=== PATIENT | male | born 1985 | race African-American/Black ===

== ENCOUNTER 2017-01-11 02:56 | Emergency (ER) | payer MEDICAID ==
[~2017-01-11] VITALS: Ht 175.3 cm; Wt 72.6 kg
[~2017-01-11 02:56] MED LIST: ALBUTEROL SULFAT2 MG PO; LITHIUM8 MEQ/5 M1 PO; NKM; QUETIAPINE FUMA25 MG ORAL; ZYPREXA2.5 MG ORAL
[2017-01-11 04:37] LABS: BASOPHILS % (AUTO) 1.1 % (0.0-2.0); EOSINOPHILS % (AUTO) 0.5 % (0.0-3.0); LYMPHOCYTES % (AUTO) 12.5 % (20.0-45.0); MEAN CORPUSCULAR HEMOGLOBIN 30.8 PG (27.0-31.0); MEAN CORPUSCULAR HGB CONC 32.4 G/DL (32.0-36.0); MEAN CORPUSCULAR VOLUME 95 FL (80-99); MEAN PLATELET VOLUME 8.5 FL (6.5-10.1); MONOCYTES % (AUTO) 12.6 % (1.0-10.0); NEUTROPHILS % (AUTO) 73.4 % (45.0-75.0); PLATELET COUNT 209 K/UL (150-450); RED BLOOD COUNT 4.04 M/UL (4.70-6.10); RED CELL DISTRIBUTION WIDTH 13.5 % (11.6-14.8); WHITE BLOOD COUNT 7.2 K/UL (4.8-10.8)
[2017-01-11 04:46] LABS: ACETAMINOPHEN < 10 ug/mL (10-30); ALANINE AMINOTRANSFERASE 26 U/L (3-41); ALBUMIN/GLOBULIN RATIO 0.9 (1.0-2.7); ALCOHOL < 10 mg/dL; ANION GAP 11 (5-15); ASPARTATE AMINO TRANSFERASE 30 U/L (5-40); CALCIUM 9.4 mg/dL (8.6-10.2); CARBON DIOXIDE 28 mEQ/L (20-30); CHLORIDE 101 mEQ/L (98-107); CREATININE 0.8 mg/dL (0.7-1.2); GLOMERULAR FILTRATION RATE > 60 mL/min (>60); HEMOLYSIS 3; POTASSIUM 3.9 mEQ/L (3.4-4.9); SODIUM 140 mEQ/L (135-145); TOTAL PROTEIN 8.4 g/dL (6.6-8.7)
[2017-01-11 06:00] VITALS: BP 105/56
[2017-01-11 07:00] VITALS: BP 115/65
--- NOTE | 2017-01-11 08:58 | Diagnostic Imaging Report ---
Indication: PAIN Technique: 3 views of the right ankle Comparison: none Findings: There is a lucency over the medial talus on the AP view, not confirmed on any of the other views. No other evidence of acute fractures. No dislocations. There is slight soft tissue swelling adjacent to the distal fibula. Impression: Lucency of the only a single view, of doubtful significance but acute fracture not completely excludable. Correlate with clinical findings. Evidence of lateral soft tissue trauma Findings discussed by phone with Dr. Price in the emergency room at the time of interpretation
[2017-01-11 11:17] VITALS: BP 109/66
[2017-01-11 11:43] VITALS: BP 109/66
--- NOTE | 2017-01-11 11:50 | Emergency Room Report ---
History of Present Illness General Chief Complaint: Behavioral Complaint Present Illness Allergies: Coded Allergies: No Known Allergies (Unverified , 11/07/14) Nursing Documentation-PMH Hx Asthma: Yes Physical Exam Vital Signs Date Time Temp Pulse Resp B/P Pulse Ox O2 Delivery O2 Flow Rate FiO2 01/11/17 02:41 98.1 98 18 137/87 100 Room Air Medical Decision Making Diagnostic Impression: Primary Impression: Behavioral disorder Additional Impression: Right ankle injury Qualified Codes: S99.911A - Unspecified injury of right ankle, initial encounter ER Course 31-year-old male presents to ED for evaluation. Stating he is suicidal. Also complaining of right ankle pain and swelling Patient initially seen and evaluated. Please see initial note for full history and physical Patient had x-ray which showed questionable talus fracture. Placed in posterior splint Labs-no leukocytosis, hemoglobin/hematocrit stable, electrolytes okay, U. tox + amphetamines and cocaine CT of the ankle shows no evidence of fracture. posterior splint removed Patient was evaluated by Dr. Barkley (psychiatry) determined that patient has no immediate danger to self or others. Patient can be cleared and discharged. patient refuses Otilio wrap or crutches Diagnoses-behavioral disorder, ankle injury Stable and discharged to home. Followup with PMD/psychiatry. Return to ED if symptoms recur or worsen Labs Test 01/11/17 04:00 01/11/17 07:13 01/11/17 07:41 White Blood Count 7.2 K/UL (4.8-10.8) Red Blood Count 4.04 M/UL (4.70-6.10) Hemoglobin 12.4 G/DL (14.2-18.0) Hematocrit 38.3 % (42.0-52.0) Mean Corpuscular Volume 95 FL (80-99) Mean Corpuscular Hemoglobin 30.8 PG (27.0-31.0) Mean Corpuscular Hemoglobin Concent 32.4 G/DL (32.0-36.0) Red Cell Distribution Width 13.5 % (11.6-14.8) Platelet Count 209 K/UL (150-450) Mean Platelet Volume 8.5 FL (6.5-10.1) Neutrophils (%) (Auto) 73.4 % (45.0-75.0) Lymphocytes (%) (Auto) 12.5 % (20.0-45.0) Monocytes (%) (Auto) 12.6 % (1.0-10.0) Eosinophils (%) (Auto) 0.5 % (0.0-3.0) Basophils (%) (Auto) 1.1 % (0.0-2.0) Sodium Level 140 mEQ/L (135-145) Potassium Level 3.9 mEQ/L (3.4-4.9) Chloride Level 101 mEQ/L (98-107) Carbon Dioxide Level 28 mEQ/L (20-30) Anion Gap 11 (5-15) Blood Urea Nitrogen 14 mg/dL (7-23) Creatinine 0.8 mg/dL (0.7-1.2) Estimat Glomerular Filtration Rate > 60 mL/min (>60) Glucose Level 98 mg/dL (74-106) Calcium Level 9.4 mg/dL (8.6-10.2) Total Bilirubin 0.3 mg/dL (0.0-1.2) Aspartate Amino Transf (AST/SGOT) 30 U/L (5-40) Alanine Aminotransferase (ALT/SGPT) 26 U/L (3-41) Alkaline Phosphatase 84 U/L (40-129) Total Protein 8.4 g/dL (6.6-8.7) Albumin 4.1 g/dL (3.5-5.2) Globulin 4.3 g/dL Albumin/Globulin Ratio 0.9 (1.0-2.7) Salicylates Level < 1 mg/dL (10-30) Acetaminophen Level < 10 ug/mL (10-30) Serum Alcohol < 10 mg/dL Urine Opiates Screen Negative (NEGATIVE) Urine Barbiturates Screen Negative (NEGATIVE) Phencyclidine (PCP) Screen Negative (NEGATIVE) Urine Amphetamines Screen Positive (NEGATIVE) Urine Benzodiazepines Screen Negative (NEGATIVE) Urine Cocaine Screen Positive (NEGATIVE) Urine Marijuana (THC) Screen Negative (NEGATIVE) Other X-Ray Diagnostic Results Other X-Ray Diagnostic Results : X-Ray Ordered: R ankle EP Interpretation: No Findings: no fractures, no dislocation, no soft tissue swelling, other - ? talus fx Number of Views: 3 CT/MRI/US Diagnostic Results CT/MRI/US Diagnostic Results : Imaging Test Ordered: CT Ankle Impression no fx identified Last Vital Signs Date Time Temp Pulse Resp B/P Pulse Ox O2 Delivery O2 Flow Rate FiO2 4/5/17 11:43 98.1 66 18 109/66 98 Room Air Status: improved Disposition: HOME, SELF-CARE Condition: Stable Referrals: NOT CHOSEN IPA/,REFERRING (PCP) Patient Instructions: Self-Destructive Behavior EDIE SCHMITZ M.D. Jan 11, 2017 11:50
--- NOTE | 2017-01-11 16:18 | Diagnostic Imaging Report ---
Indication: Right ankle pain and swelling Technique: No IV contrast, per, protocol. Spiral acquisitions obtained through the right ankle. Multiplanar reconstructions were generated. Total dose length product 396 mGycm. CTDIvol(s) 15 mGy. Radiation dose was minimized using automated exposure control Comparison: Plain radiograph of earlier the same day Findings: There is mild lateral soft tissue swelling. No acute fractures. No dislocations. The joint spaces are preserved. Impression: No acute bony trauma. Previously questioned (on plain radiograph) talar injury was presumably artifactual. Evidence of minimal lateral soft tissue injury. The CT scanner at [facility] is accredited by the [employer] and the scans are performed using protocols designed to limit radiation exposure to as low as reasonably achievable to attain images of sufficient resolution adequate for diagnostic evaluation.
--- NOTE | 2017-01-11 23:58 | Consultation ---
DATE OF CONSULTATION: 01/11/2017 PSYCHIATRIC CONSULTATION: CONSULTING PHYSICIAN: Charles Barkley M.D. ATTENDING PHYSICIAN: Kanu Price M.D. REFERRING PHYSICIAN: Kanu Price M.D. HISTORY OF PRESENT ILLNESS: This patient was seen in the ER, 31-year-old male with a history of substance abuse disorder, mainly cocaine, who is being coming to the hospital with chief complaint of suicidal ideation. Psychiatry was consulted as the patient repeatedly was saying that he is going to kill himself by jumping off a bridge or jumping off a highway. He again was saying that he was suicidal because he was kicked out of his apartment. During the evaluation, he was eating a sandwich. I asked him if he could stop eating his sandwich because his mouth was full and I was not able to understand what he was saying, and he refused. Upon evaluation, he did not endorse any psychotic, depressive, anxiety, or manic symptoms. He was very angry, , and grandiose. He demanded to be admitted to a psychiatric tabor as he was "suicidal". He then stated that if they decided to discharge him, he will go and kill himself. While he was finishing his sandwich, he also admitted that he has been using drugs, mainly cocaine. When I discussed with him to follow with a psychiatric taking medication, not using drugs, he became very angry, started hitting him against the bed rail and he stated that he used profanity and he told me that he used afterword and asked me to leave the room. PAST PSYCHIATRIC HISTORY: It appears that the patient has been coming to the hospital with a similar complaint using drugs and claiming that he is suicidal. It appears that he knows the procedure. He told me that he was hospitalized in a psychiatric tabor recently, but he would not elaborate. He did not have any suicide attempts in the past. He has been noncompliant with his medication and was not able to tell me where is the psychiatrist that he had seen. PAST MEDICAL HISTORY: He has knee swelling. MEDICATIONS: Currently, he is not taking any medications. ALLERGIES: No known drug allergies. SUBSTANCE ABUSE HISTORY: Significant for cocaine. His toxicology is positive for amphetamines as well as cocaine. During the evaluation, he denies using any cocaine and denies any crystal meth. MENTAL STATUS EXAMINATION: Alert and oriented x4. Mood was angry. Affect was full range. Congruent mood and appropriate. Thought process is concrete. Thought content, no suicidal or homicidal ideations, although he says that he is suicidal and I do not believe that he is suicidal. He is saying that he is suicidal for secondary gain. No delusions. Cognition is intact. Insight and judgment are fair. ASSESSMENT: AXIS I Substance use disorder. AXIS II Deferred. AXIS III Knee swelling. AXIS IV [id number]. AXIS V Global assessment of functioning is 50. PLAN: The patient will be discharged with the followup plan with a psychiatrist. He will be given a referral to substance use disorder program as well as following up with a psychiatrist. He is not meeting the criteria for [facility] or inpatient level of care. Charles Barkley M.D. DR: Maritza JOB#: [id number] CC:
--- NOTE | 2017-01-12 03:07 | Emergency Room Report ---
History of Present Illness General Chief Complaint: Behavioral Complaint Source: Patient Present Illness HPI Patient is a 31-year-old male brought in by ambulance for increased lower extremity pain. The patient stated that he had increased pain to his foot. Patient reported having recent injury. He reported having increased pain. The patient reports recently been discharged from the psychiatric facility. He stated had been taking lithium as well as Depakote. Patient denied other complaints. Allergies: Coded Allergies: No Known Allergies (Unverified , 11/07/14) Patient History Past Medical History: see triage record Reviewed Nursing Documentation: PMH: Agreed, PSxH: Agreed Nursing Documentation-PMH Hx Asthma: Yes Review of Systems All Other Systems: negative except mentioned in HPI Physical Exam Vital Signs Date Time Temp Pulse Resp B/P Pulse Ox O2 Delivery O2 Flow Rate FiO2 01/11/17 02:41 98.1 98 18 137/87 100 Room Air Sp02 EP Interpretation: reviewed, normal General Appearance: normal inspection, well appearing, no apparent distress, alert, GCS 15 Head: atraumatic ENT: normal ENT inspection, hearing grossly normal, normal voice Neck: normal inspection, full range of motion, supple, no bony tend Respiratory: normal inspection, lungs clear, normal breath sounds, no respiratory distress, no retraction, no wheezing Cardiovascular #1: regular rate, rhythm, no edema Gastrointestinal: normal inspection, normal bowel sounds, non tender, soft, no guarding, no hernia Genitourinary: no CVA tenderness Musculoskeletal: decreased range of motion, swelling Neurologic: normal inspection, alert, oriented x3, responsive, visual and stock associate III-XII nml as tested, speech normal Psychiatric: mood/affect normal Skin: normal inspection, normal color, no rash Medical Decision Making Diagnostic Impression: Primary Impression: Behavioral disorder Additional Impressions: Right ankle injury Qualified Codes: S99.911A - Unspecified injury of right ankle, initial encounter Drug abuse ER Course Patient presented for right ankle pain. Differential diagnosis included but was not limited to fracture, contusion, vascular insufficiency, aortic aneurysm , cellulitis.Because of complexity of patient's case laboratory testing and imaging studies were ordered. The patient was noted to have partial fracture to the talus. The patient was placed in a posterior splint. The patient was noted to have some prior history of psychosis and was given Zyprexa for agitation. Patient was in the endorsed to pending psychiatric evaluation Labs Test 01/11/17 04:00 01/11/17 07:13 01/11/17 07:41 White Blood Count 7.2 K/UL (4.8-10.8) Red Blood Count 4.04 M/UL (4.70-6.10) Hemoglobin 12.4 G/DL (14.2-18.0) Hematocrit 38.3 % (42.0-52.0) Mean Corpuscular Volume 95 FL (80-99) Mean Corpuscular Hemoglobin 30.8 PG (27.0-31.0) Mean Corpuscular Hemoglobin Concent 32.4 G/DL (32.0-36.0) Red Cell Distribution Width 13.5 % (11.6-14.8) Platelet Count 209 K/UL (150-450) Mean Platelet Volume 8.5 FL (6.5-10.1) Neutrophils (%) (Auto) 73.4 % (45.0-75.0) Lymphocytes (%) (Auto) 12.5 % (20.0-45.0) Monocytes (%) (Auto) 12.6 % (1.0-10.0) Eosinophils (%) (Auto) 0.5 % (0.0-3.0) Basophils (%) (Auto) 1.1 % (0.0-2.0) Sodium Level 140 mEQ/L (135-145) Potassium Level 3.9 mEQ/L (3.4-4.9) Chloride Level 101 mEQ/L (98-107) Carbon Dioxide Level 28 mEQ/L (20-30) Anion Gap 11 (5-15) Blood Urea Nitrogen 14 mg/dL (7-23) Creatinine 0.8 mg/dL (0.7-1.2) Estimat Glomerular Filtration Rate > 60 mL/min (>60) Glucose Level 98 mg/dL (74-106) Calcium Level 9.4 mg/dL (8.6-10.2) Total Bilirubin 0.3 mg/dL (0.0-1.2) Aspartate Amino Transf (AST/SGOT) 30 U/L (5-40) Alanine Aminotransferase (ALT/SGPT) 26 U/L (3-41) Alkaline Phosphatase 84 U/L (40-129) Total Protein 8.4 g/dL (6.6-8.7) Albumin 4.1 g/dL (3.5-5.2) Globulin 4.3 g/dL Albumin/Globulin Ratio 0.9 (1.0-2.7) Salicylates Level < 1 mg/dL (10-30) Acetaminophen Level < 10 ug/mL (10-30) Serum Alcohol < 10 mg/dL Urine Opiates Screen Negative (NEGATIVE) Urine Barbiturates Screen Negative (NEGATIVE) Phencyclidine (PCP) Screen Negative (NEGATIVE) Urine Amphetamines Screen Positive (NEGATIVE) Urine Benzodiazepines Screen Negative (NEGATIVE) Urine Cocaine Screen Positive (NEGATIVE) Urine Marijuana (THC) Screen Negative (NEGATIVE) Last Vital Signs Date Time Temp Pulse Resp B/P Pulse Ox O2 Delivery O2 Flow Rate FiO2 01/11/17 11:43 98.1 66 18 109/66 98 Room Air Status: improved Disposition: HOME, SELF-CARE Condition: Stable Referrals: NOT CHOSEN IPA/,REFERRING (PCP) Patient Instructions: Self-Destructive Behavior Adan Crespo Jan 12, 2017 03:07
== END 2017-01-11 11:44 | disposition home or self-care (01) ==
LOC: EDBD 02:56 → EMR 03:14
DX: S99.911A Unspecified injury of right ankle, initial encounter (principal); F91.9 Conduct disorder, unspecified; J45.909 Unspecified asthma, uncomplicated; F15.10 Other stimulant abuse, uncomplicated; F14.10 Cocaine abuse, uncomplicated; X58.XXXA Exposure to other specified factors, initial encounter; Y92.9 Unspecified place or not applicable; Y99.8 Other external cause status
CPT/HCPCS: 36415; 80053; 80178; 80300; 80329; 85025; 99284